=== PATIENT | male | born 1990 | race Hispanic/Latino ===

== ENCOUNTER 2024-10-02 14:16 | Emergency (ER) | payer OTHER ==
[~2024-10-02] VITALS: Ht 170.2 cm; Wt 102.1 kg
[2024-10-02] MEDS: 0.9%NACL 1000ML 1,000 ML IV ONE (16:21)
[2024-10-02] MEDS: ketOROlac 15MG/ML VIAL (15MG/ML) IV ONE (16:22)
[2024-10-02] MEDS: ondanSETRON 4MG INJ IVP ONE (16:22)
--- NOTE | 2024-10-02 16:24 | ERN ---
General Chief Complaint: Generalized Body Aches Stated Complaint: HIGH BP Time Seen by MD: 14:23 Time Seen by Midlevel: 14:23 Source: patient History of Present Illness Initial Comments The patient is a 34-year-old male with a past medical history of type 2 diabetes, hypertension, and fibromyalgia presenting to the emergency department with generalized body pain. The patient states the pain started at approximately 11:30 a.m.. States it feels like his fibromyalgia flare-ups in th e past. Denies any recent injury or fall. Patient states he has had similar episodes like this in the past. He is currently being followed by apprentice painter hand for his fibromyalgia. He recently started a new cocktail for pain medication. Past surgical history includes appendectomy. Patient denies drug and alcohol use. No other symptoms reported at this time. Allergies: Coded Allergies: No Known Drug Allergies (Unverified Allergy, Unknown, 10/02/24) ROS Dictation CONSTITUTIONAL: Negative except for HPI HEAD/FACE: Negative except for HPI EENT: Negative except for HPI RESPIRATORY: Negative except for HPI GASTROINTESTINAL/ABDOMINAL: Negative except for HPI GENITOURINARY: Negative except for HPI MUSCULOSKELETAL: Negative except for HPI INTEGUMENTARY: Negative except for HPI NEUROLOGICAL/PSYCH: Negative except for HPI HEMATOLOGIC/LYMPHATIC: Negative except for HPI All Systems Negative, Except as noted above. 13 point review of systems assessed and all negative except for above. Physical Exam Physical Exam Dictation Vital Signs reviewed General Appearance: Alert, oriented x 3, no acute distress, well developed, nourished. Head and Face: non-traumatic. Eyes: PERRL, pink conjunctivas, eyelid no trauma, anterior chamber with arcus senilis. Ears: Pinnas intact and no signs of trauma or erythema ear canals clear and no discharge TM no erythema Nose: No discharge, no bleeding. Oropharynx: Mouth normal, tongue pink, pharynx clear,no erythema, tonsils no exudates, no abscesses noted, mucous membrane moist Neck: Supple, non-tender, no thyromegaly, no masses, no JVD, no bruits Breast:Deferred Chest:No tenderness, no crepitus, no paradoxical movement, no retractions Lungs:Clear, well-ventilated, symmetric, no rales, no wheezing, no rhonchi, no stridor, good breath sounds bilaterally Heart: Regular rate, regular rhythm, no murmur, no gallops Vascular: no peripheral edema, Abdomen: Soft, positive bowel sounds, nondistended, no guarding, nontender, no rebound, no masses no hepatomegaly, no splenomegaly, no Bennett's sign, no hernias. Rectal: Deferred Genital: Deferred Neurological: Normal speech, motor function intact, sensory function intact Musculoskeletal: Neck nontender, full range of motion, back nontender, full range of motion, Extremities: nontender, full range of motion Skin: Color pink, dry, no turgor, no rash, no lacerations, no abrasions, no contusions. Lymphatic: Deferred Results Laboratory and Microbiology Lab and Micro Result Laboratory Tests Test 10/02/24 16:26 White Blood Count 7.7 K/uL (4.8-10.8) Red Blood Count 5.66 MIL/uL (4.50-6.20) Hemoglobin 14.3 g/dL (14.0-18.0) Hematocrit 44.0 % (42-54) Mean Corpuscular Volume 77.7 fL (79-99) L Mean Corpuscular Hemoglobin 25.3 pg (27.0-33.0) L Mean Corpuscular Hemoglobin Concent 32.5 g/dL (32.0-36.0) Red Cell Distribution Width 14.7 % (11.0-15.5) Platelet Count 299 K/uL (130-400) Mean Platelet Volume 10.3 fL (7.5-10.5) Immature Granulocyte % (Auto) 0.4 % (0-1) Neutrophils (%) (Auto) 58.6 % (40.0-77.0) Lymphocytes (%) (Auto) 31.6 % (21.0-51.0) Monocytes (%) (Auto) 6.5 % (3.0-13.0) Eosinophils (%) (Auto) 2.5 % (0.0-8.0) Basophils (%) (Auto) 0.4 % (0.0-5.0) Neutrophils # (Auto) 4.5 K/uL (1.8-7.7) Lymphocytes # (Auto) 2.4 K/uL (1.0-4.8) Monocytes # (Auto) 0.5 K/uL (0.1-1.0) Eosinophils # (Auto) 0.19 K/uL (0.00-0.70) Basophils # (Auto) 0.03 K/uL (0.00-0.20) Absolute Immature Granulocyte (auto 0.03 K/uL (0-1) Nucleated Red Blood Cells 0.0 % (0.0-0.19) Sodium Level 132 mmol/L (136-145) L Potassium Level 3.8 mmol/L (3.5-5.1) Chloride Level 97 mmol/L (101-111) L Carbon Dioxide Level 26 mmol/L (21-32) Blood Urea Nitrogen 12 mg/dL (7-18) Creatinine 0.8 mg/dL (0.5-1.3) Glomerular Filtration Rate Calc 119 mL/min (>90) Random Glucose 176 mg/dL (70-105) H Total Calcium 9.2 mg/dL (8.5-10.1) Total Creatine Kinase 63 U/L (21-232) Labs Reviewed?: Yes MDM MDM: Differential diagnosis: Rhabdomyolysis, dehydration, fibromyalgia flare-up There are no social concerns with this patient. Prescription drug management Prescriptions will include: None Medical management and examination interpretation discussions were had by me with other qualified healthcare professionals as indicated for the patient's care. ED Course Orders Procedure Category Date Status Time Cbc With Differential LAB 10/02/24 Complete 15:42 Basic Metabolic Panel LAB 10/02/24 Complete 15:42 Creatine Kinase, Total LAB 10/02/24 Complete 15:42 0.9%Nacl 1000ml (Ns PHA 10/02/24 Complete 1000ml) 16:00 Ketorolac PHA 10/02/24 Complete Tromethamine 15mg/Ml 16:00 Morphine 2mg Syg PHA 10/02/24 Complete (Morphine 2mg Syg) 16:00 Ondansetron 4mg Inj PHA 10/02/24 Complete (Zofran 4mg Inj) 16:00 Current Medications Medications (Trade) Dose Ordered Sig/Damon Route PRN Reason Start Time Stop Time Status Last Admin Dose Admin Ketorolac Tromethamine (toRADol) 15 mg ONCE ONCE IV 10/02/24 16:00 10/02/24 16:01 DC 10/02/24 16:22 Morphine Sulfate (morPHINE 2MG SYG) 2 mg ONCE ONCE IVP 10/02/24 16:00 10/02/24 16:01 DC 1/28/25 16:32 Ondansetron HCl (zoFRAN 4MG INJ) 4 mg ONCE ONCE IVP 10/02/24 16:00 10/02/24 16:01 DC 10/02/24 16:22 Sodium Chloride 1,000 ml @ 0 mls/hr ONCE ONCE IV 10/02/24 16:00 10/02/24 16:01 DC 10/02/24 16:21 Vital Signs Date Time Temp Pulse Resp B/P (MAP) Pulse Ox O2 Delivery O2 Flow Rate FiO2 10/02/24 16:32 97.9 71 18 144/84 98 Room Air* 0 21 10/02/24 16:32 98.4 70 18 148/88 95 Room Air 0 DX & DISP Disposition: Discharge Departure Impression: Primary Impression: Fibromyalgia muscle pain Condition: Stable Additional Instructions: Your blood work today is stable. You were given pain medication in the emergency department. Please follow up with your primary care doctor and apprentice painter hand for outpatient evaluation. Return to the ER for any new or worsening symptoms Referrals: HUMAIRA POE MD (PCP) I have reviewed the case, and I agree with, Diagnosis and Plan I performed the substantive portion of the visit. I have reviewed and personally made and approve the management plan that is documented in the note by myself or the CLAUDIA. I acknowledge for responsibility for the patient's management plan. MAU VERA Oct 02, 2024 16:24
[2024-10-02] MEDS: morPHINE 2 MG SYG IVP ONE (16:32)
[2024-10-02 16:40] LABS: BASOPHILS # (AUTO) 0.03 K/uL (0.00-0.20); BASOPHILS % (AUTO) 0.4 % (0.0-5.0); EOSINOPHILS # (AUTO) 0.19 K/uL (0.00-0.70); EOSINOPHILS % (AUTO) 2.5 % (0.0-8.0); IMMATURE GRANULOCYTE ABSOLUTE 0.03 K/uL (0-1); LYMPHOCYTES # (AUTO) 2.4 K/uL (1.0-4.8); LYMPHOCYTES % (AUTO) 31.6 % (21.0-51.0); MEAN CORPUSCULAR HEMOGLOBIN 25.3 pg (27.0-33.0); MEAN CORPUSCULAR HGB CONC 32.5 g/dL (32.0-36.0); MEAN CORPUSCULAR VOLUME 77.7 fL (79-99); MONOCYTES # (AUTO) 0.5 K/uL (0.1-1.0); MONOCYTES % (AUTO) 6.5 % (3.0-13.0); NEUTROPHILS # (AUTO) 4.5 K/uL (1.8-7.7); NEUTROPHILS % (AUTO) 58.6 % (40.0-77.0); PLATELET COUNT (AUTO) 299 K/uL (130-400); RED BLOOD CELL COUNT(AUTO) 5.66 MIL/uL (4.50-6.20); RED CELL DISTRIBUTION WIDTH 14.7 % (11.0-15.5); WHITE BLOOD COUNT (AUTO) 7.7 K/uL (4.8-10.8)
[2024-10-02 16:50] LABS: CREATININE 0.8 mg/dL (0.5-1.3); POTASSIUM 3.8 mmol/L (3.5-5.1)
[2024-10-02 17:40] VITALS: BP 132/74; PULSE 70; RESP 18; TEMP 98.4; O2SAT 95
== END 2024-10-02 17:41 | disposition home or self-care (01) ==
LOC: EDH 14:16
DX: M79.7 Fibromyalgia (principal); E11.9 Type 2 diabetes mellitus without complications; I10 Essential (primary) hypertension
CPT/HCPCS: 99284; 96374; 96375; 96361; 82550; 80048; 85025; 36415; J1885; J2270; J7030; J2405